=== PATIENT | male | born 1985 | race Caucasian/White ===

== ENCOUNTER 2019-03-03 23:57 | Emergency (ER) | payer BC, OTHER ==
[~2019-03-03] VITALS: Ht 167.6 cm; Wt 70.3 kg
[2019-03-04] MEDS ORDERED: SERT50TA PO (00:06)
--- NOTE | 2019-03-04 00:16 | NUR ---
Patient discharged to home in stable conditon. Written and verbal after care instructions given. Patient verbalizes understanding of instructions. Pt walked out of ER in stable gait. NAD noted.
[2019-03-04 00:17] VITALS: BP 109/67
== END 2019-03-04 00:17 | disposition home or self-care (01) ==
LOC: ER 03-04 00:06
DX: F41.9 Anxiety disorder, unspecified (principal); R06.00 Dyspnea, unspecified; Z79.899 Other long term (current) drug therapy
CPT/HCPCS: A4663

== ENCOUNTER 2022-03-27 10:30 | Emergency (ER) | payer OTHER ==
[~2022-03-27] VITALS: Ht 172.7 cm; Wt 77.1 kg
[~2022-03-27 10:30] MED LIST: SERT50TA PO
[2022-03-27] MEDS ORDERED: ASPIRIN 325 MG TABLET PO ONE (11:00)
[2022-03-27] MEDS ORDERED: ASPIRIN 325 MG TABLET ONE (11:01)
--- NOTE | 2022-03-27 11:08 | NUR ---
36 years old male walk in to er c/o chest pain denies sob nausea vomiting.
[2022-03-27 11:12] LABS: HEMATOCRIT 44.3 % (36.7-47.1); MEAN CORPUSCULAR HEMOGLOBIN 29.7 uug (23.8-33.4); MEAN CORPUSCULAR VOLUME 87.7 fL (73.0-96.2); PLATELET COUNT (AUTO) 194 K/uL (152-348)
[2022-03-27 11:24] LABS: CARBON DIOXIDE 33 mmol/L (21-32); CHLORIDE 102 mmol/L (98-107); CREATININE 1.1 mg/dL (0.6-1.3); GLUCOSE 92 mg/dL (74-106); POTASSIUM 4.1 mmol/L (3.5-5.1); UREA NITROGEN, BLOOD 12 mg/dL (7-18)
[2022-03-27] MEDS ORDERED: NAPR-1009 PO (13:31)
--- NOTE | 2022-03-27 13:56 | NUR ---
patient condition stable d/c home with instructions after care reviewed understood left er ambulatory, no cp, no sob.
[2022-03-27 14:01] VITALS: BP 122/70
== END 2022-03-27 14:03 | disposition home or self-care (01) ==
LOC: ER 10:30
DX: R07.9 Chest pain, unspecified (principal); F41.9 Anxiety disorder, unspecified
CPT/HCPCS: 36415; 71045; 84484; 85025; 93005; A4663

== ENCOUNTER 2022-09-27 19:32 | Emergency (ER) | payer OTHER ==
[~2022-09-27] VITALS: Ht 172.7 cm; Wt 77.1 kg
[~2022-09-27 19:32] MED LIST changes: +NAPR-1009 PO
[2022-09-27] MEDS ORDERED: ASPIRIN EC 81 MG TABLET.DR PO ONE (19:54)
[2022-09-27] MEDS ORDERED: LORAZEPAM 1 MG TABLET ONE (19:55)
[2022-09-27] MEDS ORDERED: LORAZEPAM 0.5 MG TABLET PO ONE (20:00)
[2022-09-27] MEDS ORDERED: ASPIRIN 81 MG TAB.CHEW PO ONE (20:00)
[2022-09-27 20:23] LABS: BASOPHILS % (AUTO) 0.9 % (0.0-2.0); DIFFERENTIAL COMMENT 0; EOSINOPHILS % (AUTO) 0.8 % (0.0-7.0); HEMATOCRIT 43.1 % (36.7-47.1); HEMOGLOBIN 14.7 g/dL (12.5-16.3); LYMPHOCYTES # (AUTO) 1.8 K/uL (0.8-4.8); LYMPHOCYTES % (AUTO) 51.6 % (20.5-51.5); MEAN CORPUSCULAR HEMOGLOBIN 29.7 uug (23.8-33.4); MEAN CORPUSCULAR HGB CONC 34 g/dL (32.5-36.3); MEAN CORPUSCULAR VOLUME 87.2 fL (73.0-96.2); MONOCYTES # (AUTO) 0.5 K/uL (0.1-1.30); MONOCYTES % (AUTO) 13.1 % (0.0-11.0); NEUTROPHILS # (AUTO) 1.2 K/uL (1.8-8.9); NEUTROPHILS % (AUTO) 33.6 % (38.5-71.5); PLATELET COUNT (AUTO) 138 K/uL (152-348); RED BLOOD CELL COUNT(AUTO) 4.94 MIL/uL (4.06-5.63); RED CELL DISTRIBUTION WIDTH 12.3 % (12.1-16.2); WHITE BLOOD COUNT (AUTO) 3.5 K/uL (3.6-10.2)
[2022-09-27 20:25] LABS: CALCIUM 8.6 mg/dL (8.5-10.1); CARBON DIOXIDE 27 mmol/L (21-32); CHLORIDE 103 mmol/L (98-107); CREATININE 1.2 mg/dL (0.6-1.3); GLUCOSE 95 mg/dL (74-106); POTASSIUM 3.9 mmol/L (3.5-5.1); SODIUM SERUM 139 mmol/L (136-145); UREA NITROGEN, BLOOD 17 mg/dL (7-18)
[2022-09-27 20:38] LABS: ALANINE AMINOTRANSFERASE 13 U/L (16-63); ALBUMIN 3.9 g/dL (3.4-5.0); ALKALINE PHOSPHATASE 53 U/L (50-136); ASPARTATE AMINOTRANSFERASE 14 U/L (15-37); BILIRUBIN,DIRECT 0.1 mg/dL (0.0-0.2); BILIRUBIN,TOTAL 0.3 mg/dL (0.2-1.0); NT-PRO BNP 64 pg/mL (0-125); TOTAL PROTEIN, SERUM 7.5 g/dL (6.4-8.2)
[2022-09-27] MEDS ORDERED: LORA0.5T48 PO (22:47)
[2022-09-27 23:04] VITALS: BP 102/74; TEMP 98; O2SAT 98
== END 2022-09-27 23:06 | disposition home or self-care (01) ==
LOC: ER 19:39
DX: R07.89 Other chest pain (principal); F41.9 Anxiety disorder, unspecified; Z79.899 Other long term (current) drug therapy
CPT/HCPCS: 36415; 71045; 84484; 85025; 93005; A4663

== ENCOUNTER 2024-02-03 19:11 | Emergency (ER) | payer OTHER ==
[~2024-02-03] VITALS: Ht 172.7 cm; Wt 79.4 kg
[~2024-02-03 19:11] MED LIST changes: +LORA0.5T48 PO
[2024-02-03 21:04] LABS: BASOPHILS # (AUTO) 0.1 K/UL (0.0-0.2); BASOPHILS % (AUTO) 0.7 % (0.0-2.0); EOSINOPHILS # (AUTO) 0.1 K/uL (0.0-0.7); EOSINOPHILS % (AUTO) 0.9 % (0.0-7.0); HEMATOCRIT 40.9 % (36.7-47.1); HEMOGLOBIN 13.9 g/dL (12.5-16.3); LYMPHOCYTES # (AUTO) 6.5 K/uL (0.8-4.8); LYMPHOCYTES % (AUTO) 58.7 % (20.5-51.5); MEAN CORPUSCULAR HEMOGLOBIN 29.3 uug (23.8-33.4); MEAN CORPUSCULAR HGB CONC 34 g/dL (32.5-36.3); MEAN CORPUSCULAR VOLUME 86.5 fL (73.0-96.2); MONOCYTES # (AUTO) 0.8 K/uL (0.1-1.30); MONOCYTES % (AUTO) 7.5 % (0.0-11.0); NEUTROPHILS # (AUTO) 3.6 K/uL (1.8-8.9); NEUTROPHILS % (AUTO) 32.2 % (38.5-71.5); PLATELET COUNT (AUTO) 213 K/uL (152-348); RED BLOOD CELL COUNT(AUTO) 4.73 MIL/uL (4.06-5.63); RED CELL DISTRIBUTION WIDTH 12.5 % (12.1-16.2); WHITE BLOOD COUNT (AUTO) 11.1 K/uL (3.6-10.2)
[2024-02-03 21:05] LABS: DIFFERENTIAL COMMENT 1
[2024-02-03] MEDS ORDERED: IV NORMAL SALINE 250 ML IV ONE (21:24)
[2024-02-03] MEDS ORDERED: SWABABLE VALVE TRANSFER SET EA MC ONE (21:24)
[2024-02-03] MEDS ORDERED: IOHEXOL 300MG/ML 100 ML INFUS..BTL ONE (21:24)
[2024-02-03 21:25] LABS: ALBUMIN 3.6 g/dL (3.4-5.0); BILIRUBIN,TOTAL 0.3 mg/dL (0.2-1.0); CALCIUM 8.7 mg/dL (8.5-10.1); CREATININE 1.4 mg/dL (0.6-1.3); POTASSIUM 3.9 mmol/L (3.5-5.1); TOTAL PROTEIN, SERUM 7.1 g/dL (6.4-8.2)
[2024-02-04] MEDS ORDERED: AMOX-430 PO (00:53)
[2024-02-04 00:56] LABS: *MONOTEST NEGATIVE (NEGATIVE)
[2024-02-04 01:13] VITALS: BP 129/75; TEMP 98.9; O2SAT 98
== END 2024-02-04 01:00 | disposition home or self-care (01) ==
LOC: ER 19:11
DX: I88.9 Nonspecific lymphadenitis, unspecified (principal); J03.90 Acute tonsillitis, unspecified; M54.2 Cervicalgia; F32.A Depression, unspecified; Z79.899 Other long term (current) drug therapy
CPT/HCPCS: 99285; 70491; 80053; 82150; 85025; 36415 ×2; 86308; Q9967; A4606; A4663